=== PATIENT | female | born 1995 | race Caucasian/White ===

== ENCOUNTER → 2017-09-13 09:03 | Outpatient (CLI) | payer BC ==
--- NOTE | 2017-09-18 12:15 | EC ---
PATIENT:EVELIA WELLER DATE OF SERVICE: 09/13/17 SEX: F MEDICAL RECORD: [id number] DATE OF : [birth year] LOCATION:D.[facility] AGE OF PATIENT: 22 ADMISSION DATE: 09/13/17 REFERRING PHYSICIAN: INTERPRETING PHYSICIAN: GREGORY LANGSTON MD ECHOCARDIOGRAM REPORT ECHO CHARGES 4 ECHO COMPLETE CLINICAL DIAGNOSIS: PALPITATIONS ECHOCARDIOGRAPHIC MEASUREMENTS (adult normal given) AC root (d.<3.7cm) 2.8 cm LV Septum d (<1.2 cm> 1.1 cm Valve Excursion 1.7 cm LV Septum (systole) 1.5 cm Left Atria (s.<4.0cm> 2.9 cm LVPW d(<1.2cm) 1.3 cm RV (d.<2.3cm) 3.2 cm LVPW (sytole) 1.4 cm LV diastole(<5.6CM) 4.5 cm MV E-F(>70mm/sec) cm LV systole 2.6 cm LVOT Diameter 1.7 cm MV exc.(>10mm) 2.2 cm Est.ejection fraction (50-75%) % Pericardial Effusion N DOPPLER: LVIT cm/sec A 48.0 cm/sec E 93.0 cm/sec LA cm/sec RVSP 24 mmHg LVOT 110 cm/sec AOP1/2T m/s Asc. Ao 131 cm/sec RVOT 76 cm/sec RA cm/sec PA 105 cm/sec AV Gradient Peak 6.86 mmHg AV Mean 3.52 mmHg AV Area 2.0 cm MV Gradient Peak 4.59 mmHg MV Mean 1.51 mmHg MV Area cm COMMENTS: Angle Dozer Operator: Andree MARTIN Process Safety Engineering Technologist: 1 Dr. Langston TAPE# PACS DATE OF SERVICE: 09/13/2017 ECHOCARDIOGRAM DATE OF SERVICE: 09/13/2017 FINDINGS: 1. Left ventricular chamber size is within normal limits. Left ventricular systolic function is normal. Overall ejection fraction estimated at 60%. 2. Left atrium, right atrium and right ventricular chamber sizes are within ECHOCARDIOGRAM REPORT [id number] EVELIA WELLER normal limits. 3. Valvular structures have normal structure and motion. No evidence of mitral valve prolapse is present. 4. Doppler interrogation reveals trace to mild mitral regurgitation, trace to mild tricuspid regurgitation. No other valvular insufficiency or stenosis and pulmonary systolic pressure is normal estimated at 24 mmHg. 5. No evidence of pericardial effusion or left ventricular thrombus. TRANSINT:[id number] Voice Confirmation ID: [id number] DOCUMENT ID: [id number] GREGORY LANGSTON MD at 1215 CC: [id number] DICTATION DATE: 09/13/17 1255 HEATING MECHANIC: 09/13/17 1400 DEP CLI 09/13/[address] [id number]
== END | disposition home or self-care (01) ==
LOC: D.ECHO 09:03
DX: R00.2 Palpitations (principal)